=== PATIENT | female | born 1960 | race Caucasian/White ===

== ENCOUNTER → 2018-04-05 10:42 | Outpatient (CLI) | payer MEDICAID ==
[2016-07-04 23:03] VITALS: BMI 36.3
[~2018-04-05 10:42] MED LIST: ACETAMINOPHEN500 M1 PO; BENTYL 20 MG TA20 MG PO; BREO ELLIPTA 11 EACH INH; HYDROCODONE-APA1 TAB PO; NASONEX NASAL S17 GM NS; PHENERGAN25 M1 PO; PROAIR HFA8.5 GM INH; VANCOMYCIN 1 GM/1 G1 IV; ZESTORETIC 10/11 TAB PO
== END | disposition home or self-care (01) ==
LOC: D.RT 10:42
DX: R06.09 Other forms of dyspnea (principal); I10 Essential (primary) hypertension

== ENCOUNTER 2019-01-05 06:00 | Day surgery (SDC) | payer MEDICAID ==
[~2019-01-05] VITALS: Ht 157.5 cm; Wt 97.3 kg
[2019-01-05 07:11] VITALS: BP 131/65; Ht 157.5 cm; Wt 97.3 kg
[2019-01-05 07:23] LABS: CALC OSMOLALITY 285 mosm/kg (275-300); CHLORIDE - SERUM 104 mmol/L (98-107); CREATININE - SERUM 0.7 mg/dL (0.6-1.3); GLUCOSE 121 mg/dL (74-106); POTASSIUM - SERUM 3.6 mmol/L (3.5-5.1); SODIUM 143 mmol/L (136-145); UREA NITROGEN 13 mg/dL (7-18); eGFR NON AFRICAN AMERICAN > 90 mL/min (90-120)
[2019-01-05 08:09] LABS: BASOPHILS 0.5 % (0-2); EOSINOPHILS 1.8 % (0-7); HEMATOCRIT 43.6 % (36.0-48.0); IMMATURE GRANULOCYTES 0.2 % (0-5); LYMPHOCYTES 28.8 % (15-50); MCH 28.8 pg (26.0-34.0); MCHC 32.1 g/dL (31.0-37.0); MCV 89.7 fL (80.0-100.0); MEAN PLATELET VOLUME 10.6 fL (7.4-10.4); NEUTROPHILS 60.7 % (40-80); PLATELET COUNT 292 10x3/uL (130-400); RBC 4.86 10x6/uL (4.00-5.40); RDW 14.3 % (11.5-14.5); WBC 8.9 10x3/uL (4.8-10.8)
--- NOTE | 2019-01-05 08:58 | NUR ---
DC INSTRUCTIONS GIVEN TO PT/FAMILY. STATE UNDERSTANDINGD. DC'D IV CATH FULLY INTACT.
--- NOTE | 2019-01-05 09:04 | NUR ---
PT LEFT UNIT VIA WC AT 0902
--- NOTE | 2019-01-05 12:06 | OP ---
PATIENT NAME: GLORIA JENKINS MEDICAL RECORD: [id number] :60 LOCATION:[facility] ADMISSION DATE: SURGEON: MARY BOWMAN DO DATE OF OPERATION: 01/05/2019 PROCEDURE: EGD with polypectomy and biopsies. INDICATIONS FOR PROCEDURE: Heartburn, melena. SCOPE: Olympus video gastroscope. MEDICATIONS: Propofol 200 mg IV per anesthesia. ESTIMATED BLOOD LOSS: Minimal. COMPLICATIONS: None. FINDINGS: Informed consent was given. The patient was made comfortable with the above medication. After reaching an adequate level of sedation by slow IV push, the patient was placed on her left side. The endoscope was advanced under direct visualization through the mouth to the third portion of the duodenum. The upper, middle, and lower thirds of the esophagus appeared normal. At the GE junction, there was evidence of LA class A reflux-induced esophagitis. The endoscope was advanced beyond the GE junction into the stomach and retroflexed to view the cardia and fundus. There was a small sliding hiatal hernia present. There were no associated ulcers or other abnormalities with this hernia. The fundus of the stomach appeared normal. In the body of the stomach, there was a single benign-appearing polyp that had adenomatous features. It was removed using a hot snare in one piece and completely retrieved. The mucosa of the body of the stomach as well as the antrum and prepyloric region appeared normal without ulcers or erosions. Random cold forceps biopsies were taken to submit for histopathology and to rule out the presence of H. pylori. The endoscope was advanced beyond the pylorus into the duodenum. The duodenum appeared normal down to the third portion. The endoscope was then withdrawn from the patient. The patient tolerated the procedure well, and there were no complications. IMPRESSION: 1. LA class A reflux-induced esophagitis. 2. Small sliding hiatal hernia. 3. Gastric polyp removed using hot snare. PLAN AND RECOMMENDATIONS: 1. Discharge home when recovery parameters are met. 2. Follow up biopsy specimen results. 3. GERD diet and reflux precautions. 4. Continue current medications. 5. If reflux symptoms remain uncontrolled on maximum dose PPI therapy, can consider surgical referral regarding the hiatal hernia. TRANSINT:[id number] Voice Confirmation ID: [id number] DOCUMENT ID: [id number] OPERATIVE REPORT [id number] GLORIA JENKINS MARY BOWMAN DO at 1206 CC: [id number] DICTATION DATE: 01/05/1931 [employer]: 01/05/[address] [facility] 01/05/19 [place] [id number] [place] [address]
== END 2019-01-05 09:02 | disposition home or self-care (01) ==
LOC: D.OPS 06:00
PROVIDERS: Anesthesiology; ATTEND Internal Medicine Gastroenterology
DX: K21.0 Gastro-esophageal reflux disease with esophagitis (principal); K29.50 Unspecified chronic gastritis without bleeding; K44.9 Diaphragmatic hernia without obstruction or gangrene; K31.7 Polyp of stomach and duodenum; Z01.812 Encounter for preprocedural laboratory examination

== ENCOUNTER 2019-02-07 06:40 | Day surgery (SDC) | payer MEDICAID ==
[~2019-02-07] VITALS: Ht 157.5 cm; Wt 97.3 kg
[2019-02-07 07:03] LABS: BASOPHILS 0.4 % (0-2); EOSINOPHILS 1.4 % (0-7); HEMOGLOBIN 15.6 g/dL (12-16); IMMATURE GRANULOCYTES 0.2 % (0-5); LYMPHOCYTES 26.8 % (15-50); MCH 29.3 pg (26.0-34.0); MCHC 33.2 g/dL (31.0-37.0); MCV 88.2 fL (80.0-100.0); MEAN PLATELET VOLUME 10.3 fL (7.4-10.4); MONOCYTES 8.3 % (2-11); NEUTROPHILS 62.9 % (40-80); PLATELET COUNT 290 10x3/uL (130-400); RBC 5.33 10x6/uL (4.00-5.40); RDW 14.1 % (11.5-14.5)
[2019-02-07 07:21] LABS: APTT 33.6 SECONDS (22.8-39.4); INR 1.08 (0.85-1.17); PROTIME 13.5 SECONDS (11.6-15.0)
[2019-02-07 07:35] VITALS: BP 108/62; Ht 157.5 cm; Wt 97.3 kg
--- NOTE | 2019-02-07 09:35 | NUR ---
DC INSTRUCTIONS GIVEN TO PT/FAMILY. STATE UNDERSTANDING. DC'D IV CATH FULLY INTACT
--- NOTE | 2019-02-07 09:44 | NUR ---
PT LEFT UNIT VIA WC AT 0925
--- NOTE | 2019-02-09 14:01 | OP ---
PATIENT NAME: GLORIA JENKINS MEDICAL RECORD: [id number] :60 LOCATION:[facility] ADMISSION DATE: SURGEON: MARY BOWMAN DO DATE OF OPERATION: 02/07/2019 PROCEDURE: Colonoscopy with polypectomy. INDICATIONS FOR PROCEDURE: History of malignant tumor of colon, status post resection and chemotherapy in November 2015, chronic constipation, left lower quadrant and right lower quadrant abdominal pain. SCOPE: Olympus video pediatric colonoscope. MEDICATIONS: Propofol 250 mg IV per anesthesia. ESTIMATED BLOOD LOSS: Minimal. COMPLICATIONS: None. FINDINGS: Informed consent was given. The patient was made comfortable with the above medication. After reaching an adequate level of sedation by slow IV push, the patient was placed on her left side. A digital rectal examination was performed and revealed some external hemorrhoids. The endoscope was then advanced under direct visualization through the rectum to the cecum, confirmed by the presence of the appendiceal orifice and ileocecal valve. The endoscope was slowly withdrawn and mucosa was carefully examined. The prep quality was good. There was evidence of a prior resection and anastomosis located in the sigmoid region. Around this site, there were some granulomatous reactions related to sutures present. There were no abnormalities visualized within this region. In the ascending colon, there was a flat polyp, which measured approximately 1 cm in size. It was removed using endoscopic mucosal resection technique with a saline injection lift followed by a hot snare polypectomy in 1 piece. The polyp was retrieved. In the sigmoid colon, there was a benign appearing sessile polyp, which measured approximately 7-8 mm in diameter. It was removed using a hot snare in 1 piece and completely retrieved. In the rectum, there was a benign appearing sessile polyp, which measured approximately 5 mm in diameter. It was removed using hot snare in 1 piece and completely retrieved. Retroflexion was performed in the rectum with visualization of grade III hemorrhoids. The endoscope was withdrawn from the patient. The patient tolerated the procedure well and there were no complications. IMPRESSION: 1. Three polyps as described above, removed using a combination of EMR and hot snare. 2. Evidence of a prior resection and anastomosis in the sigmoid region. 3. Grade III internal and external hemorrhoids. PLAN AND RECOMMENDATIONS: 1. Discharge home when recovery parameters are met. 2. Follow up biopsy specimen results. 3. High fiber diet. 4. Supplement diet with 1 tablespoon of Metamucil or another psyllium husk fiber daily. 5. Continue MiraLax 1 cap daily. 6. Maintain adequate hydration. OPERATIVE REPORT [id number] GLORIA JENKINS Ruben 7. Recall colonoscopy in 1 year based on a history of malignancy and strong personal history of multiple polyps. TRANSINT:[id number] Voice Confirmation ID: [id number] DOCUMENT ID: [id number] MARY BOWMAN DO at 1401 CC: [id number] DICTATION DATE: 02/07/19 0858 [employer]: 02/07/19 1058 [facility] 02/07/19 [facility] [address] [place] [address]
== END 2019-02-07 09:40 | disposition home or self-care (01) ==
LOC: D.OPS 06:40
PROVIDERS: Anesthesiology; ATTEND Internal Medicine Gastroenterology
DX: K62.1 Rectal polyp (principal); D12.2 Benign neoplasm of ascending colon; K63.5 Polyp of colon; K64.2 Third degree hemorrhoids; K59.09 Other constipation; Z85.038 Personal history of other malignant neoplasm of large intestine; Z90.49 Acquired absence of other specified parts of digestive tract; Z92.21 Personal history of antineoplastic chemotherapy; Z01.812 Encounter for preprocedural laboratory examination

== ENCOUNTER 2020-05-07 08:00 | Outpatient (CLI) | payer OTHER ==
[2019-02-07 07:35] VITALS: BMI 39.2
== END 2020-05-07 10:00 | disposition home or self-care (01) ==
LOC: D.MAMMO 08:00
PROVIDERS: ATTEND Family Medicine
DX: Z12.31 Encounter for screening mammogram for malignant neoplasm of breast (principal)

== ENCOUNTER → 2020-05-21 13:16 | Outpatient (CLI) | payer OTHER ==
[2019-02-07 07:35] VITALS: BMI 39.2
== END | disposition home or self-care (01) ==
LOC: D.LAB 13:16
PROVIDERS: ATTEND Internal Medicine Pulmonary Disease
DX: Z11.59 Encounter for screening for other viral diseases (principal)

== ENCOUNTER → 2020-05-24 10:35 | Outpatient (CLI) | payer OTHER ==
[2019-02-07 07:35] VITALS: BMI 39.2
[2020-05-24 12:38] LABS: BASOPHILS 0.2 % (0-2); HEMATOCRIT 47.5 % (36.0-48.0); IMMATURE GRANULOCYTES 0.3 % (0-5); LYMPHOCYTES 28.7 % (15-50); MCH 28.4 pg (26.0-34.0); MCHC 31.6 g/dL (31.0-37.0); MCV 89.8 fL (80.0-100.0); MEAN PLATELET VOLUME 9.9 fL (7.4-10.4); MONOCYTES 7.8 % (2-11); PLATELET COUNT 310 10x3/uL (130-400); RBC 5.29 10x6/uL (4.00-5.40); RDW 14.7 % (11.5-14.5); WBC 12.5 10x3/uL (4.8-10.8)
== END | disposition home or self-care (01) ==
LOC: D.RT 10:35
PROVIDERS: ATTEND Internal Medicine Pulmonary Disease
DX: J44.9 Chronic obstructive pulmonary disease, unspecified (principal)

== ENCOUNTER → 2021-01-23 10:02 | Outpatient (CLI) | payer OTHER ==
[2019-02-07 07:35] VITALS: BMI 39.2
== END | disposition home or self-care (01) ==
LOC: D.LAB 10:02
PROVIDERS: ATTEND Internal Medicine Pulmonary Disease
DX: J44.9 Chronic obstructive pulmonary disease, unspecified (principal)

== ENCOUNTER → 2021-01-28 14:06 | Outpatient (CLI) | payer OTHER ==
[2019-02-07 07:35] VITALS: BMI 39.2
== END | disposition home or self-care (01) ==
LOC: D.RT 14:00
PROVIDERS: ATTEND Internal Medicine Pulmonary Disease
DX: J44.9 Chronic obstructive pulmonary disease, unspecified (principal)